=== PATIENT | male | born 1975 | race Caucasian/White ===

== ENCOUNTER 2019-08-01 16:05 | Inpatient (IN) ==
--- NOTE | 2019-08-01 18:23 | Emergency Department Note ---
General Adult HPI - General Chief complaint: Extremity Injury, Upper Stated complaint: hands and feet are swollen Time Seen by Provider: 08/01/19 17:47 Source: patient Mode of arrival: ambulatory Limitations: no limitations - History of Present Illness HPI Narrative: 44-year-old male patient presents to the emergency Department chief complaint of bilateral hand swelling and pain 1 day. Patient tells swelling started abruptly yesterday his progress or worsen. He is no longer able to make a full fist and is not able to grasp things secondary to worsening pain. He's never had this in the past. He has had edema in the past in his lower extremities. He was evaluated in our local emergency department on 06/14 for an episode of shortness of breath and chest pain. During that time he had swelling in his feet. During his workup he had blood work done and didn't show any elevated WBC. His CK total was 1777. CK-MB was 17.4. Myoglobin 269. A troponin was negative at 0.01. BNP was less than 50. He was diagnosed with rhabdomyolysis and discharged with instructions for compression hose, elevation of his legs, and discontinuing his diuretic therapy. He denies ongoing excessive activity (is no longer walking 3 miles as he was). He denies illicit substances. He continues to take his medications as previous directed. He does mention he was evaluated recent chest clinic with repeat laboratory studies but I do not have most review. He denies systemic fevers or sweats. He does mention being chilled yesterday. He denies sinus congestion, runny nose, or cough. He denies acute shortness of breath. He denies retrosternal chest pain or palpitations. He denies abdominal pain, nausea, vomiting, or diarrhea. He admits to a mild bilateral foot pain. He denies focal weakness. He denies dysuria. He admits to polyuria. A review of his active problems with the following: Acute renal failure, rhabdomyolysis, dependent edema, hypertension, history of Hodgkin's lymphoma, history of DVT, schizophrenia, obesity, hypothyroidism. - Related Data Home Medications Medication Instructions Recorded Confirmed Carvedilol [Coreg] 3.125 mg PO BID 06/14/19 06/14/19 DULoxetine [Cymbalta] 60 mg PO DAILY 06/14/19 06/14/19 Furosemide [Lasix] 25 mg PO DAILY 06/14/19 06/14/19 Levothyroxine [Synthroid] 25 mg PO DAILY 06/14/19 06/14/19 OLANZapine [Zyprexa] 15 mg PO DAILY 06/14/19 06/14/19 Omeprazole [Prilosec] 20 mg PO DAILY 06/14/19 06/14/19 Proair Hfa 90 mg PO DAILY 06/14/19 06/14/19 Allergies Allergy/AdvReac Type Severity Reaction Status Date / Time bee venom protein (honey bee) Allergy Verified 06/14/19 00:08 ibuprofen Allergy Verified 06/14/19 00:08 paliperidone [From Invega] Allergy Verified 06/14/19 00:08 Review of Systems All systems ED: reviewed and negative except as stated. Past Medical History - Past Medical History Psychiatric history: Reports: anxiety, depression, schizophrenia - Social History smoking status: Current every day smoker Alcohol use: Reports: None Drug use: Reports: none, marijuana (Daily smokes it) Physical Exam Limitations: no limitations General appearance: alert, anxious, grimacing, in distress Head: atraumatic, normocephalic Eye: Present: normal appearance, PERRL, EOMI. Absent: scleral icterus, conjunctival injection ENT: Present: normal oropharynx, mucous membranes dry Neck: Present: trachea midline. Absent: lymphadenopathy, thyromegaly Chest: Present: symmetric chest wall rise Respiratory: Present: normal lung sounds bilaterally. Absent: respiratory distress, wheezes, stridor, accessory muscle use, prolonged expiratory phase Cardiovascular: Present: regular rate, normal rhythm. Absent: systolic murmur, diastolic murmur Abdominal: Present: soft. Absent: distention, tenderness, guarding, rebound, rigidity, organomegaly, mass Extremities: Present: tenderness (exquisite tenderness to palpation throughout both hands.), normal capillary refill, other (considerable edema throughout both hands.). Absent: full ROM (decreased range of motion throughout all digits of both hands.) Neurological: Present: alert, oriented X3 Psychiatric: Present: agitated, anxious Skin: Present: warm, dry Course Course Narrative: Patient is brought into the emergency department and a history of physical exam is performed. Saline lock was established and laboratory studies were drawn. Ice packs were attempted to both hands with patient did not tolerate this. He was given Dilaudid as 0.5 mg IVP. Patient is suffer considerable pain to his hands was given a second Dilaudid 0.5 mg IVP. X-rays of both hands were ordered and reviewed. A review of his laboratory studies show the following: CBC el evated WBC 12.5, all others are normal limits. CMP chloride 95, anion gap 18, creatinine 1.4, total bilirubin 1.1, AST 186, total protein 8.6, albumin 5.8, all as normal limits. Total CK 15,824. CK-MB 92.8. Urinalysis showing clear yellow urine with specific gravity 1.023 and pH 6.0. Proteinuria and positive blood. Few mucus. Bilateral hand x-ray showing ununited left clavicular fracture probably avascular necrosis. Radiologist mentioned that she had some healed right first metacarpal and fifth metacarpal fractures. No other abnormalities. After reviewing all the data I discussed these findings with the patient. At this time he is suffer from rhabdomyolysis and is needing hospital ization for ongoing management. However this in mind, I contacted the hospitalist (Dr. Jensen) and discussed the case with him. At this time the hospitalist is going to admit the patient for ongoing evaluation and and watching his CK level over time. He'll need aggressive IV hydration and monitor ing of his kidney functions. Patient remained stable throughout his entire time in the emergency department and is being admitted under the care of Dr. Jensen. All further treatment decisions and modalities be carried out by Dr. Jensen at this time. Vital Signs Temperature 98.1 F 08/01/19 16:07 Pulse Rate 108 H 08/01/19 16:07 Respiratory Rate 18 08/01/19 16:07 Blood Pressure 144/96 08/01/19 16:07 Temperature 98.1 F 08/01/19 16:07 Pulse Rate 91 H 08/01/19 19:31 Respiratory Rate 18 08/01/19 16:07 Blood Pressure 140/105 08/01/19 19:31 Pulse Oximetry (%) 96 08/01/19 19:31 Medical Decision Making - Lab Data Lab results reviewed: Yes I reviewed the patient's lab results. Result diagrams: 08/01/19 17:35 08/01/19 17:35 Lab Results 08/01/19 08/01/19 08/01/19 Range/Units 17:35 17:35 17:35 WBC 12.5 H (4.5-11.0) K/mcL RBC 4.94 (4.50-5.90) M/mcL Hgb 14.7 (13.5-16.5) g/dL Hct 44.3 (41.0-55.0) % MCV 89.6 (80.0-100.0) fL MCH 29.8 (26.0-34.0) pg MCHC 33.3 (31.0-36.0) g/dL RDW 16.1 H (11.5-14.5) % Plt Count 283 (140-440) K/mcL MPV 7.2 L (7.4-10.4) fL Gran % 74.0 (38.0-78.0) % Lymph % (Auto) 20.8 (15.5-49.0) % [place] % (Auto) 4.3 (1.0-12.0) % Eos % (Auto) 0.6 (0.0-7.0) % Baso % (Auto) 0.3 (0.0-2.0) % Gran # 9.2 H (1.8-8.0) K/mcL Lymph # (Auto) 2.6 (1.5-4.8) K/mcL [place] # (Auto) 0.5 (0.1-0.9) K/mcL Eos # (Auto) 0.1 (0.0-0.7) K/mcL Baso # (Auto) 0 (0.0-0.3) K/mcL Sodium 135 (133-145) mmol/L Potassium 3.8 (3.3-5.1) mmol/L Chloride 95 L (96-108) mmol/L Carbon Dioxide 22 (22-30) mmol/L Anion Gap 18.0 H (8-16) BUN 13 (6-20) mg/dl Creatinine 1.4 H (0.7-1.2) mg/dl GFR Calculation 62 Glucose 99 (70-105) mg/dL Uric Acid (2.5-8.0) mg/dL Calcium 10.0 (8.6-10.4) mg/dl Total Bilirubin 1.1 H (0.0-1.0) mg/dL AST 186 H (0-37) U/l ALT 38 (0-40) U/l Alkaline Phosphatase 70 (39-117) U/L Total Creatine Kinase 34738 H (24-195) IU/L CK-MB (CK-2) 93.8 H (0-4.9) ng/ml Total Protein 8.6 H (5.9-8.4) gm/dL Albumin 5.8 H (3.2-5.2) gm/dL Globulin 2.8 (2.2-3.7) gm/dL Albumin/Globulin Ratio 2.1 (1.0-2.3) Urine Color Urine Appearance Urine pH (5.0-9.0) Ur Specific [place] (1.000-1.035) Urine Protein (NEG) mg/dL Urine Glucose (UA) (NEG) mg/dL Urine Ketones (NEG) mg/dL Urine Occult Blood (<0.03) mg/dL Urine Nitrate (NEG) Urine Bilirubin (NEG) mg/dL Urine Urobilinogen (NEG) mg/dL Ur Leukocyte Esterase (NEG) /uL Urine RBC (0-1) /hpf Urine WBC (0-4) /hpf Ur Squamous Epith Cells (0-4) /hpf Urine Bacteria (0) /hpf Urine Mucus (0) /hpf 08/01/19 08/01/19 Range/Units 17:35 18:27 WBC (4.5-11.0) K/mcL RBC (4.50-5.90) M/mcL Hgb (13.5-16.5) g/dL Hct (41.0-55.0) % MCV (80.0-100.0) fL MCH (26.0-34.0) pg MCHC (31.0-36.0) g/dL RDW (11.5-14.5) % Plt Count (140-440) K/mcL MPV (7.4-10.4) fL Gran % (38.0-78.0) % Lymph % (Auto) (15.5-49.0) % [place] % (Auto) (1.0-12.0) % Eos % (Auto) (0.0-7.0) % Baso % (Auto) (0.0-2.0) % Gran # (1.8-8.0) K/mcL Lymph # (Auto) (1.5-4.8) K/mcL [place] # (Auto) (0.1-0.9) K/mcL Eos # (Auto) (0.0-0.7) K/mcL Baso # (Auto) (0.0-0.3) K/mcL Sodium (133-145) mmol/L Potassium (3.3-5.1) mmol/L Chloride (96-108) mmol/L Carbon Dioxide (22-30) mmol/L Anion Gap (8-16) BUN (6-20) mg/dl Creatinine (0.7-1.2) mg/dl GFR Calculation Glucose (70-105) mg/dL Uric Acid 7.6 (2.5-8.0) mg/dL Calcium (8.6-10.4) mg/dl Total Bilirubin (0.0-1.0) mg/dL AST (0-37) U/l ALT (0-40) U/l Alkaline Phosphatase (39-117) U/L Total Creatine Kinase (24-195) IU/L CK-MB (CK-2) (0-4.9) ng/ml Total Protein (5.9-8.4) gm/dL Albumin (3.2-5.2) gm/dL Globulin (2.2-3.7) gm/dL Albumin/Globulin Ratio (1.0-2.3) Urine Color Yellow Urine Appearance Clear Urine pH 6.0 (5.0-9.0) Ur Specific [place] 1.023 (1.000-1.035) Urine Protein 100 A (NEG) mg/dL Urine Glucose (UA) Negative (NEG) mg/dL Urine Ketones Neg (NEG) mg/dL Urine Occult Blood 0.2 A (<0.03) mg/dL Urine Nitrate Neg (NEG) Urine Bilirubin Neg (NEG) mg/dL Urine Urobilinogen Neg (NEG) mg/dL Ur Leukocyte Esterase Neg (NEG) /uL Urine RBC 1 (0-1) /hpf Urine WBC 1 (0-4) /hpf Ur Squamous Epith Cells < 1 (0-4) /hpf Urine Bacteria 0 (0) /hpf Urine Mucus Few (0) /hpf - Radiology Data Radiology results reviewed: Yes I reviewed the patient's radiology results. Ordering Physician: Mani Landeros PA-C Date of Service: 08/01/19 Procedure(s): XR hand comp BI 3V Accession Number(s): [id number] CLINICAL INFORMATION: Bilateral joint pain TECHNIQUE: PA, oblique, lateral bilateral hands COMPARISON: None. FINDINGS: Right hand: Previous open reduction and internal fixation of right first metacarpal fracture. There is a plate and multiple screws. Alignment is anatomic Probable old healed fracture of the right fifth metacarpal Normal joint spaces. Metacarpal phalangeal joints are normal. Interphalangeal joints are negative. Radiocarpal joints are normal. Intercarpal joints are negative. Mild negative ulnar variance No bone destruction. Left hand: Ununited left navicular fracture. There is sclerosis and cystic change consistent with avascular necrosis. Mild degenerative joint disease in the left radiocarpal joint. Mild negative ulnar variance. Metacarpophalangeal joints and interphalangeal joints are normal. No acute fracture IMPRESSION: 1. 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 Healed right first metacarpal and fifth metacarpal fractures 3. No other abnormality Interpreted and Authenticated by: Brandt Valentin 08/01/19 Disposition Pt seen by DATA MANAGER/PA only: Yes Clinical Impression: Rhabdomyolysis Qualifiers: Rhabdomyolysis type: non-traumatic Qualified Code(s): M62.82 - Rhabdomyolysis Disposition: Xfer As Inpt ([facility]) Condition: Good Instructions: Rhabdomyolysis (ED) Additional Instructions: Patient is being admitted to the hospital under the care of Dr. Jensen presents hospitalist) sees. All further treatment decisions to be carried out by the hospitalist service at this time. Time of Disposition: 20:33
[2019-08-01] MEDS: HYDROmorphone 2 MG/ML VIAL IV PRN ×3 (18:35→21:00)
[2019-08-01] MEDS: 0.9 % SODIUM CHLORIDE 1,000 ML IV ONE ×2 (18:36→19:50)
[2019-08-01 18:57] LABS: Basophils # (Auto) 0 K/mcL (0.0-0.3); Basophils % (Auto) 0.3 % (0.0-2.0); Eosinophils # (Auto) 0.1 K/mcL (0.0-0.7); Eosinophils % (Auto) 0.6 % (0.0-7.0); Hematocrit 44.3 % (41.0-55.0); Hemoglobin 14.7 g/dL (13.5-16.5); Lymphocytes # (Auto) 2.6 K/mcL (1.5-4.8); Lymphocytes % (Auto) 20.8 % (15.5-49.0); Mean Cell Volume 89.6 fL (80.0-100.0); Mean Corpuscular HGB Conc 33.3 g/dL (31.0-36.0); Mean Platelet Volume 7.2 fL (7.4-10.4); Monocytes # (Auto) 0.5 K/mcL (0.1-0.9); Monocytes % (Auto) 4.3 % (1.0-12.0); Platelet Count 283 K/mcL (140-440); RBC 4.94 M/mcL (4.50-5.90); Red Cell Distribution Width 16.1 % (11.5-14.5); WBC 12.5 K/mcL (4.5-11.0)
--- NOTE | 2019-08-01 19:05 | XRay Report ---
CLINICAL INFORMATION: Bilateral joint pain TECHNIQUE: PA, oblique, lateral bilateral hands COMPARISON: None. FINDINGS: Right hand: Previous open reduction and internal fixation of right first metacarpal fracture. There is a plate and multiple screws. Alignment is anatomic Probable old healed fracture of the right fifth metacarpal Normal joint spaces. Metacarpal phalangeal joints are normal. Interphalangeal joints are negative. Radiocarpal joints are normal. Intercarpal joints are negative. Mild negative ulnar variance No bone destruction. Left hand: Ununited left navicular fracture. There is sclerosis and cystic change consistent with avascular necrosis. Mild degenerative joint disease in the left radiocarpal joint. Mild negative ulnar variance. Metacarpophalangeal joints and interphalangeal joints are normal. No acute fracture IMPRESSION: 1. 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 Healed right first metacarpal and fifth metacarpal fractures 3. No other abnormality Interpreted and Authenticated by: Brandt Valentin 08/01/19
[2019-08-01 19:24] LABS: ALT/SGPT 38 U/l (0-40); AST/SGOT 186 U/l (0-37); Albumin 5.8 gm/dL (3.2-5.2); Albumin/Globulin Ratio 2.1 (1.0-2.3); Alkaline Phosphatase 70 U/L (39-117); Bilirubin,Total 1.1 mg/dL (0.0-1.0); Blood Urea Nitrogen 13 mg/dl (6-20); Carbon Dioxide 22 mmol/L (22-30); Chloride 95 mmol/L (96-108); Globulin 2.8 gm/dL (2.2-3.7); Glomerular Filtration Rate 62; Glucose 99 mg/dL (70-105)
[2019-08-01 19:32] LABS: Appearance,Urine CLEAR; Bacteria,Urine 0 /hpf (0); Bilirubin,Urine NEG (NEG); Color,Urine YELLOW; Glucose,Urine (UA) NEGATIVE (NEG); Ketones,Urine NEG (NEG); Leukocyte Esterase,Urine NEG /uL (NEG); Mucus,Urine FEW /hpf (0); Nitrate,Urine NEG (NEG); Protein,Urine 100 mg/dL (NEG); Specific Gravity,Urine 1.023 (1.000-1.035); Urine Blood 0.2 mg/dL (<0.03); Urine RBC 1 /hpf (0-1); Urine Squamous Epithelial Cell < 1 /hpf (0-4); Urine WBC 1 /hpf (0-4); Urobilinogen,Urine NEG (NEG)
[2019-08-01 19:37] LABS: Creatine Kinase MB 93.8 ng/ml (0-4.9)
[2019-08-01] MEDS ORDERED: 0.9 % SODIUM CHLORIDE 1,000 ML IV SCH (20:45)
--- NOTE | 2019-08-01 21:57 | Internal Med History&Physical ---
Medical - H&P: HPI Patient information: Note initiated : 08/01/19 at 9:57 pm Service Date, if different from initiated Date: [] Patient: Delfin Millard a 44 y/o M admitted on for Hands And Feet Are Swollen. Chief Complaint: hand pain and swelling; found to have rhabdomyolysis History of present illness: Mr. Millard is a 44 year old M with a history of schizophrenia, depression, hypertension, asthma/emphysema who presented to the emergency department with swelling of his hands arms and shoulders. History is obtained speaking with the patient, though that is a bit convoluted, as well as reviewing old records. Patient was seen back here on 06/14 and diagnosed with mild rhabdomyolysis. At that time it was thought it was because he was walking extensively between [place] and [place] to visit family. He presents again today with bilateral hands being swollen and tender and complaints of retaining fluid and being painful. Yesterday he was feeling well. He spent the day playing with his grandchildren. He was using video games. He was not using his hands for labor, catching objects, or any repetitive movements or striking motions. He states he cannot use his hands because they are too painful. He awoke last night with the onset of pain and swelling. He has had multiple fractures of his hands in the past, states the pain currently is worse than fractures. He does not think his hands are swollen up like this before. He also complains of retaining fluid in his arms and shoulders. The patient's history is vague, and sometimes circuitous. He denies any stimulant use, though he was incarcerated up until 05/12/2019 for methamphetamine possession. he is on olanzapine, but has no stigmata of a neuroleptic malignant syndrome. He did not sleep on his hands, had not been unconscious for prolonged period of time. He denies any prior episodes. Denies any similar type of episodes in the family . Is a history of schizophrenia and coronary disease in the family, no history of autoimmune disease. Upon laboratory evaluation his total CPK was found to be greater than 15,000. Renal function is stable. He is being admitted for treatment of rhabdomyolysis. Patient denies fevers or chills. He gets some stable dyspnea secondary to COPD. Is recently had a head cold which is improving. He denies any abdominal pain, no nausea, vomiting, diarrhea. No dysuria. His chronic low back pain which is unchanged. He has to stop when he is walking secondary to back pain in order to recover. Denies any easy bruising, no history of mucous membrane swelling. He has callused areas on the hands and knees, he states that was because he was sleeping on the floor and crawling in the recent past. He was incarcerated up until 05/12/2019 for methamphetamine possession. No focal neurologic symptoms. Denies any hallucinations. No vision changes, no headache. Review of systems: Except as noted in the history of present illness, the remainder of a 10 point review of systems is negative. Medical - H&P: [facility] Medical history: Hypertension, essential (Chronic) History of Hodgkin's lymphoma (Chronic) History of DVT (deep vein thrombosis) (Resolved) Schizophrenia (Chronic) Obesity (BMI 30-39.9) (Chronic) Hypothyroidism, acquired (Chronic) Asthma/emphysema Chronic low back pain with L5 rupture Surgical history: History of lymph node biopsy (Acute) History of major abdominal surgery (Acute) History of removal of Port-a-Cath (Acute) History of tonsillectomy (Acute) Pertinent family history: Father: Coronary artery disease, Schizophrenia Mother: COPD Brother: Schizophrenia Social history: Denies current illicit drug use. Smokes half pack per day. Does not drink alcohol. Medical - H&P: Meds Home Medications Medication Instructions Recorded Confirmed Type Carvedilol [Coreg] 3.125 mg PO BID 06/14/19 08/02/19 History DULoxetine [Cymbalta] 60 mg PO QHS 06/14/19 08/02/19 History OLANZapine [Zyprexa] 15 mg PO QHS 06/14/19 08/02/19 History Omeprazole [Prilosec] 20 mg PO DAILY 06/14/19 08/02/19 History Proair Hfa 90 mg PO DAILY 06/14/19 08/02/19 History Hydrochlorothiazide [Oretic] 25 mg PO QDAY 08/01/19 08/02/19 History Levothyroxine Sodium 200 mcg PO QDAY 08/01/19 08/02/19 History Levothyroxine [Synthroid] 50 mcg PO DAILY 08/02/19 08/02/19 History Allergies Allergy/AdvReac Type Severity Reaction Status Date / Time bee venom protein (honey bee) Allergy Anaphylaxis Verified 08/02/19 00:25 ibuprofen Allergy Hives Verified 08/02/19 00:25 paliperidone [From Invega] Allergy Hives Verified 08/02/19 00:25 Medical - H&P: Exam - Constitutional Vitals: Temp Pulse Resp BP Pulse Ox 98.1 F 108 H 18 161/85 96 08/01/19 16:07 08/01/19 21:32 08/01/19 16:07 08/01/19 21:32 08/01/19 21:32 Exam: GENERAL: Alert, oriented, mildly uncomfortable. Cooperative. HEENT: Atraumatic. PERRL at 2 mm, conjunctiva clear, no scleral icterus. Hearing grossly intact. Oropharynx with moist mucous membranes, poor dentition, no lip or gum lesions. NECK: Supple without meningismus, no thyromegaly RESPIRATORY: Breath sounds clear bilaterally without wheezes or rhonchi. Respiratory effort is unlabored. CARDIOVASCULAR: Regular rate and rhythm, no murmur gallop or rub. Trace peripheral edema. Carotid pulses 2+. GI: Abdomen obese soft, nontender, no guarding or rebound. Bowel sounds are present. No hepatosplenomegaly. MUSCULOSKELETAL: Nonpitting edema across the dorsum of both hands from the wrist to the phalange ease. There is mild to moderate tenderness to palpation, no fluctuance. SKIN: Rough, mildly raised dry patches across the knuckles of the hands, at the elbows and knees. These are not violaceous or erythematous. NEUROLOGIC: Cranial nerves II through XII grossly intact. Muscle mass normal. Strength 5/5 in the upper and lower extremities, no apparent proximal weakness. Sensation intact to light touch bilaterally. PSYCHIATRIC: Alert, oriented x3, mood is anxious, mild psychomotor agitation. Thought processes are convoluted at times. Medical - H&P: Reslt - Labs CBC & Chem 7: 08/01/19 17:35 08/01/19 17:35 Labs: Short CBC 08/01/19 Range/Units 17:35 WBC 12.5 H (4.5-11.0) K/mcL Hgb 14.7 (13.5-16.5) g/dL Hct 44.3 (41.0-55.0) % Plt Count 283 (140-440) K/mcL BMP 08/01/19 17:35 Sodium 135 Potassium 3.8 Chloride 95 L Carbon Dioxide 22 BUN 13 Creatinine 1.4 H Glucose 99 Calcium 10.0 Cardiac Enzymes 08/01/19 Range/Units 17:35 Total Creatine Kinase 97361 H (24-195) IU/L CK-MB (CK-2) 93.8 H (0-4.9) ng/ml Liver Function 08/01/19 Range/Units 17:35 Total Bilirubin 1.1 H (0.0-1.0) mg/dL AST 186 H (0-37) U/l ALT 38 (0-40) U/l Alkaline Phosphatase 70 (39-117) U/L Albumin 5.8 H (3.2-5.2) gm/dL Urine 08/01/19 Range/Units 18:27 Urine Color Yellow Urine Appearance Clear Urine pH 6.0 (5.0-9.0) Ur Specific [place] 1.023 (1.000-1.035) Urine Protein 100 A (NEG) mg/dL Urine Glucose (UA) Negative (NEG) mg/dL - Impressions Images are personally reviewed Date of Service: 08/01/19 Procedure(s): XR hand comp BI 3V IMPRESSION: 1. 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 Healed right first metacarpal and fifth metacarpal fractures 3. No other abnormality Medical - H&P: A/P - Narrative A/P Narrative: 44-year-old male presenting with swelling to the bilateral hands, found to have rhabdomyolysis. Rhabdomyolysis. CPK is elevated to greater than 15,000. Unclear what the etiology is. Suspect rhabdomyolysis. Illicit stimulant use could be a possibility. Less likely something more esoteric such as a capillary leak causing swelling and rhabdo. Wonder if the patient did undergo repetitive striking motions with his hands for some reason yesterday leading to the current findings. He does have some scaling and thickening across the PIP joints as well as the knees and elbows, this is not a classic violaceous or erythematous finding like [place]'s papules. Need to consider a inflammatory myopathy if CK is not improving with hydration as is expected with rhabdo. Plan: Inpatient admission Aggressive fluid resuscitation Monitor urine output and renal function Follow CPK Had drug screen the urine sample Consider sending CHRISTIN and other autoimmune work-up if not improving Schizophrenia. Apparently the patient has been on and off his medications according to history he gave his nurse after admission. Plan: Continue home olanzapine. Hypertension. On carvedilol. Plan: Continue. Prophylaxis: Lovenox CODE STATUS: Full code
[2019-08-01] MEDS ORDERED: diphenhydrAMINE 50 MG/ML VIAL IV ONE (22:01)
[2019-08-01] MEDS ORDERED: ONDANSETRON 4 MG/2 ML VIAL IV PRN (23:50)
[2019-08-01] MEDS ORDERED: ACETAMINOPHEN 325 MG TABLET PO PRN (23:50)
[2019-08-01] MEDS ORDERED: ONDANSETRON 4 MG ODT TABLET SL PRN (23:50)
[2019-08-02] MEDS: 0.9 % SODIUM CHLORIDE 1,000 ML IV SCH ×4 (00:29→19:30)
[2019-08-02] MEDS: 0.9 % SODIUM CHLORIDE 10 ML SYRINGE IV SCH ×4 (00:29→20:21)
[2019-08-02] MEDS ORDERED: traMADol 50 MG TABLET PO ONE (01:21)
[2019-08-02] MEDS ORDERED: OLANZapine 2.5 MG TABLET PO ONE (02:45)
[2019-08-02] MEDS ORDERED: ACETAMINOPHEN 325 MG TABLET PO ONE (03:57)
[2019-08-02 04:14] LABS: Amphetamine Screen,Urine SUSPECT POSITIVE (NONDETECTED); Barbiturate Screen,Urine NONE DETECTED (NONDETECTED); Benzodiazepines Screen,Urine NONE DETECTED (NONDETECTED); Cannabinoid Screen,Urine SUSPECT POSITIVE (NONDETECTED); Cocaine Screen,Urine NONE DETECTED (NONDETECTED); Opiate Screen,Urine NONE DETECTED (NONDETECTED); Oxycodone, Urine Screen NONE DETECTED (NONDETECTED); Phencyclidine Screen,Urine NONE DETECTED (NONDETECTED)
[2019-08-02 07:24] LABS: Blood Urea Nitrogen 13 mg/dl (6-20); CRP,High Sensitivity 19.2 mg/L (1.0-3.0); Calcium 9.3 mg/dl (8.6-10.4); Carbon Dioxide 24 mmol/L (22-30); Chloride 99 mmol/L (96-108); Glomerular Filtration Rate 62; Glucose 121 mg/dL (70-105)
[2019-08-02] MEDS ORDERED: LEVOTHYROXINE 50 MCG TABLET PO SCH (09:00)
[2019-08-02] MEDS: OMEPRAZOLE 20 MG CAPSULE PO SCH (09:07)
[2019-08-02] MEDS: LEVOTHYROXINE 100 MCG TABLET PO SCH (09:07)
[2019-08-02] MEDS: traMADol 50 MG TABLET PO PRN ×2 (09:07→20:29)
[2019-08-02] MEDS: CARVEDILOL 3.125 MG TABLET PO SCH ×2 (09:08→18:41)
[2019-08-02] MEDS: ENOXAPARIN 40 MG/0.4 ML SYRINGE SQ SCH (09:08)
--- NOTE | 2019-08-02 15:01 | Ultrasound Report ---
CLINICAL INFORMATION: Bilateral leg pain and edema TECHNIQUE: Grayscale and color flow Doppler spectral imaging COMPARISON: None. FINDINGS: Negative examination for deep venous thrombosis. Common femoral veins, femoral veins, popliteal veins, calf veins are negative bilaterally. Greater saphenous veins are negative. No deep venous thrombosis. No focal abnormality. IMPRESSION: 1. Negative bilateral lower extremity deep venous ultrasound 2. Negative examination for deep venous thrombosis Interpreted and Authenticated by: Brandt Valentin 08/02/19
--- NOTE | 2019-08-02 15:45 | Internal Med Progress Note ---
Medical - PN: Subj Patient information: Note initiated : 08/02/19 at 3:43 pm Service Date, if different from initiated Date: [] Patient: Delfin Millard a 44 y/o M admitted on 08/01/19 for Hands And Feet Are Swollen. Chief Complaint: Follow up rhabdo Interval history: 08/01 Mr. Millard is a 44 year old M with a history of schizophrenia, depression, hypertension, asthma/emphysema who presented to the emergency department with swelling of his hands arms and shoulders. History is obtained speaking with the patient, though that is a bit convoluted, as well as reviewing old records. Patient was seen back here on 06/14 and diagnosed with mild rhabdomyolysis. At that time it was thought it was because he was walking extensively between [place] and [place] to visit family. He presents again today with bilateral hands being swollen and tender and complaints of retaining fluid and being painful. Yesterday he was feeling well. He spent the day playing with his grandchildren. He was using video games. He was not using his hands for labor, catching objects, or any repetitive movements or striking motions. He states he cannot use his hands because they are too painful. He awoke last night with the onset of pain and swelling. He has had multiple fractures of his hands in the past, states the pain currently is worse than fractures. He does not think his hands are swollen up like this before. He also complains of retaining fluid in his arms and shoulders. The patient's history is vague, and sometimes circuitous. He denies any stimulant use, though he was incarcerated up until 05/12/2019 for methamphetamine possession. he is on olanzapine, but has no stigmata of a neuroleptic malignant syndrome. He did not sleep on his hands, had not been unconscious for prolonged period of time. He denies any prior episodes. Denies any similar type of episodes in the family. Is a history of schizophrenia and coronary disease in the family, no history of autoimmune disease. Upon laboratory evaluation his total CPK was found to be greater than 15,000. Renal function is stable. He is being admitted for treatment of rhabdomyolysis. 08/02 Continues to have worsening edema in the right hand and wrist (peripheral IV in the right antecubital, also pain persist with edema in the left hand. Denies any weaknesses. Has dry patches on his knees and elbows and faintly over the first knuckles of the hands. No woody findings consistent with Rotton's nodules. No rash across the upper back or chest. Some mild periorbital erythema. No fever or chills. Appetite is good. No dyspnea, no chest pain. Wants to go out and smoke. - Constitutional Vitals: Vital Signs Temp Pulse Resp BP Pulse Ox 98.0 F 61 18 143/91 93 08/02/19 11:52 08/02/19 11:52 08/02/19 11:52 08/02/19 11:52 08/02/19 11:52 Period Temp Pulse Resp BP Sys/Choe Pulse Ox Last 24 Hr 97.5 F-98.1 F 61-108 18-18 134-178/57-142 93-97 Intake and Output 08/02/19 08/02/19 08/02/19 05:59 13:59 21:59 Intake Total 1240 1323 Output Total 425 1750 Balance 815 -427 Weight 274 lb 8 oz 274 lb 8 oz Patient Weight 08/03/19 04:59 Weight 274 lb 8 oz Intake & Output: Intake & Output 08/02/19 08/02/19 08/02/19 05:59 13:59 21:59 Intake Total 1240 1323 Output Total 425 1750 Balance 815 -427 Weight 274 lb 8 oz 274 lb 8 oz Intake: IV 1000 923 Sodium Chloride 0.9% 1,000 ml @ 1000 923 150 mls/hr IV .Q6H40M [facility] Rx#: [id number] Oral 240 400 Output: Void Amount 425 1750 Other: Meal Breakfast Percent of Meal Consumed 100% Feeding Ability Independent Urine Appearance Clear Clear Urine Color Dark Yellow Bright Yellow Exam: General: Mildly uncomfortable appearing Chest: Clear with good respiratory effort Cardiovascular: Regular Abdomen: Obese, soft Skin: Dry patches on elbows and knees, not violaceous or erythematous. Very mild dry scale over MCP knuckles, again not violaceous. Mild eyelid and periorbital erythema with few telangiectasia. Extremities: Significant edema of the right dorsum of the hand, identification badge is becoming tight at the right wrist. There is tenderness to palpation. Range of motion at the wrist and digits are limited due to edema. Musculoskeletal: No muscle tenderness to palpation. Strength is 5/5 at the biceps and triceps as well as the hip flexors and extensors bilaterally. Medical - PN: Obj Da - Labs CBC & Chem 7: 08/01/19 17:35 08/02/19 05:08 Labs: Abnormal Lab Results 08/02/19 08/01/19 08/01/19 05:08 18:27 18:27 WBC RDW MPV Gran # Chloride Anion Gap Creatinine 1.4 H Glucose 121 H Total Bilirubin AST Total Creatine Kinase 71465 H CK-MB (CK-2) C-React Prot High Sens 19.2 H Total Protein Albumin Urine Protein 100 A Urine Occult Blood 0.2 A Ur Amphetamines Screen Suspect positive A U Marijuana (THC) Screen Suspect positive A 08/01/19 08/01/19 08/01/19 17:35 17:35 17:35 WBC 12.5 H RDW 16.1 H MPV 7.2 L Gran # 9.2 H Chloride 95 L Anion Gap 18.0 H Creatinine 1.4 H Glucose Total Bilirubin 1.1 H AST 186 H Total Creatine Kinase 29677 H CK-MB (CK-2) 93.8 H C-React Prot High Sens Total Protein 8.6 H Albumin 5.8 H Urine Protein Urine Occult Blood Ur Amphetamines Screen U Marijuana (THC) Screen Meds: Medications Acetaminophen (Tylenol) 650 mg PO Q6HP PRN; Protocol PRN Reason: Per Pain Protocol/Fever > 101 [facility] Last Admin: 08/02/19 09:08 Dose: 3.125 mg Documented by: Duloxetine HCl (Cymbalta) 60 mg PO HS [facility] Enoxaparin Sodium (Lovenox) 40 mg SQ DAILY [facility] Last Admin: 08/02/19 09:08 Dose: 40 mg Documented by: Sodium Chloride (Sodium Chloride 0.9%) 1,000 mls @ 150 mls/hr IV .Q6H40M [facility] Last Admin: 08/02/19 11:09 Dose: 150 mls/hr Documented by: Levothyroxine Sodium (Synthroid) 200 mcg PO ACB [facility] Last Admin: 08/02/19 09:07 Dose: 200 mcg Documented by: Olanzapine (Zyprexa) 15 mg PO HS [facility] Omeprazole (Prilosec) 20 mg PO ACB [facility] Last Admin: 08/02/19 09:07 Dose: 20 mg Documented by: Ondansetron HCl (Zofran) 4 mg IV Q6HP PRN PRN Reason: Nausea And Vomiting Ondansetron HCl (Zofran Odt) 4 mg SL Q6HP PRN PRN Reason: Nausea And Vomiting Sodium Chloride (Saline Flush) 10 ml IV Q8 [facility] Last Admin: 08/02/19 05:02 Dose: Not Given Documented by: Tramadol HCl (Ultram) 100 mg PO Q6HP PRN PRN Reason: Pain Last Admin: 08/02/19 09:07 Dose: 100 mg Documented by: Medical - PN: A/P - Time Spent With Patient Total time spent is greater than 50% in coordination of care (as documented) at patient's floor/unit and/or counseling patient: Greater than 35 minutes - Narrative A/P Narrative: 44-year-old male presenting with swelling to the bilateral hands, found to have rhabdomyolysis. Rhabdomyolysis. CPK >15,000 at presentation, up over 20,000 today. Etiology remains unclear, rhabdomyolysis is suspected however. Urine drug screen was putatively positive for amphetamine, though he denies use. Denies any other new medications. Does not have classic dermatomyositis skin findings, though query if this could be an autoimmune process. Less likely something more esoteric such as a capillary leak causing swelling and rhabdo. Need to consider a inflammatory myopathy if CK continues to not improve with hydration as is expected with rhabdo. If this is a stimulant related, potentially could not have yet peaked. Plan: Continue fluid resuscitation Monitor urine output and renal function Follow CPK Rule out venous thrombosis as cause of edema with upper extremity duplex (ordered, however a lower extremity study was performed; upper study pending) Consider sending CHRISTIN and other autoimmune work-up if not improving Schizophrenia. Apparently the patient has been on and off his medications according to history he gave his nurse after admission. Plan: Continue home olanzapine. Hypertension. On carvedilol. Plan: Continue. Prophylaxis: Lovenox Medical - PN: Qual - VTE Deep Vein Thrombosis/Pulmonary Embolism Present on Admission: No
[2019-08-02] MEDS: DULoxetine 30 MG CAPSULE PO SCH (20:28)
[2019-08-02] MEDS: OLANZapine 5 MG TABLET PO SCH (20:28)
[2019-08-03] MEDS: 0.9 % SODIUM CHLORIDE 1,000 ML IV SCH ×5 (01:28→17:40)
[2019-08-03] MEDS: 0.9 % SODIUM CHLORIDE 10 ML SYRINGE IV SCH ×3 (05:23→23:00)
[2019-08-03 06:14] LABS: Basophils # (Auto) 0 K/mcL (0.0-0.3); Basophils % (Auto) 0.6 % (0.0-2.0); Eosinophils # (Auto) 0.1 K/mcL (0.0-0.7); Eosinophils % (Auto) 1.2 % (0.0-7.0); Hematocrit 38.8 % (41.0-55.0); Hemoglobin 12.9 g/dL (13.5-16.5); Lymphocytes # (Auto) 2.4 K/mcL (1.5-4.8); Mean Cell Volume 90.7 fL (80.0-100.0); Mean Corpuscular HGB Conc 33.2 g/dL (31.0-36.0); Mean Platelet Volume 7.3 fL (7.4-10.4); Monocytes # (Auto) 0.4 K/mcL (0.1-0.9); Monocytes % (Auto) 5.2 % (1.0-12.0); Platelet Count 201 K/mcL (140-440); RBC 4.28 M/mcL (4.50-5.90); Red Cell Distribution Width 15.7 % (11.5-14.5); WBC 7.8 K/mcL (4.5-11.0)
[2019-08-03 06:18] LABS: Blood Urea Nitrogen 9 mg/dl (6-20); Calcium 8.8 mg/dl (8.6-10.4); Carbon Dioxide 22 mmol/L (22-30); Chloride 103 mmol/L (96-108); Glomerular Filtration Rate 67; Glucose 113 mg/dL (70-105)
[2019-08-03] MEDS: CARVEDILOL 3.125 MG TABLET PO SCH ×2 (07:20→16:47)
[2019-08-03] MEDS: LEVOTHYROXINE 100 MCG TABLET PO SCH (07:20)
[2019-08-03] MEDS: ENOXAPARIN 40 MG/0.4 ML SYRINGE SQ SCH (07:20)
[2019-08-03] MEDS: OMEPRAZOLE 20 MG CAPSULE PO SCH (07:20)
--- NOTE | 2019-08-03 08:30 | Internal Med Progress Note ---
Medical - PN: Subj Patient information: Note initiated : 08/03/19 at 8:27 am Service Date, if different from initiated Date: [] Patient: Delfin Millard a 44 y/o M admitted on 08/01/19 for Hands And Feet Are Swollen. Chief Complaint: Follow-up rhabdomyolysis Interval history: 08/01 Mr. Millard is a 44 year old M with a history of schizophrenia, depression, hypertension, asthma/emphysema who presented to the emergency department with swelling of his hands arms and shoulders. History is obtained speaking with the patient, though that is a bit convoluted, as well as reviewing old records. Patient was seen back here on 06/14 and diagnosed with mild rhabdomyolysis. At that time it was thought it was because he was walking extensively between [place] and [place] to visit family. He presents again today with bilateral hands being swollen and tender and complaints of retaining fluid and being painful. Yesterday he was feeling well. He spent the day playing with his grandchildren. He was using video games. He was not using his hands for labor, catching objects, or any repetitive movements or striking motions. He states he cannot use his hands because they are too painful. He awoke last night with the onset of pain and swelling. He has had multiple fractures of his hands in the past, states the pain currently is worse than fractures. He does not think his hands are swollen up like this before. He also complains of retaining fluid in his arms and shoulders. The patient's history is vague, and sometimes circuitous. He denies any stimulant use, though he was incarcerated up until 05/12/2019 for methamphetamine possession. he is on olanzapine, but has no stigmata of a neuroleptic malignant syndrome. He did not sleep on his hands, had not been unconscious for prolonged period of time. He denies any prior episodes. Denies any similar type of episodes in the family. Is a history of schizophrenia and coronary disease in the family, no history of autoimmune disease. Upon laboratory evaluation his total CPK was found to be greater than 15,000. Renal function is stable. He is being admitted for treatment of rhabdomyolysis. 08/02 Continues to have worsening edema in the right hand and wrist (peripheral IV in the right antecubital, also pain persist with edema in the left hand. Denies any weaknesses. Has dry patches on his knees and elbows and faintly over the first knuckles of the hands. No woody findings consistent with Rotton's nodules. No rash across the upper back or chest. Some mild periorbital erythema. No fever or chills. Appetite is good. No dyspnea, no chest pain. Wants to go out and smoke. 08/03 Patient did have his upper extremity duplex repeated yesterday (ordered upper extremities, electronic calibration technician initially did lower extremities). Hands are not as painful. Still with edema, but improving. Does not recall any trauma to his hands or upper extremities prior to coming in. CPKs are dropping today. - Constitutional Vitals: Vital Signs Temp Pulse Resp BP Pulse Ox 98.4 F 60 20 121/60 97 08/03/19 07:47 08/03/19 04:00 08/03/19 07:47 08/03/19 07:47 08/03/19 07:47 Period Temp Pulse Resp BP Sys/Choe Pulse Ox Last 24 Hr 97.5 F-98.8 F 58-105 18-20 121-162/60-100 93-98 Intake and Output 08/02/19 08/03/19 08/03/19 22:59 05:59 13:59 Intake Total 1000 Output Total Balance 1000 Weight Intake & Output: Intake & Output 08/02/19 08/03/19 08/03/19 22:59 05:59 13:59 Intake Total 1000 Output Total Balance 1000 Weight Intake: IV 1000 Sodium Chloride 0.9% 1,000 ml @ 1000 150 mls/hr IV .Q6H40M [facility] Rx#: [id number] Oral Output: Void Amount Other: Urine Appearance Urine Color Exam: General: No acute distress, seated edge of bed Chest: Clear to auscultation bilaterally Cardiovascular: Regular rate and rhythm. Abdomen: Obese, soft, nontender Extremities: Puffiness and nonpitting edema on the right greater than left hands, particularly in the dorsum of the hands but also in digits. Minimal tenderness to palpation today. Range of motion improving. 2+ radial pulses. Good capillary refill. Neuro: Alert, oriented. No hallucinations. Medical - PN: Obj Da - Labs CBC & Chem 7: 08/03/19 04:53 08/03/19 04:53 Labs: Abnormal Lab Results 08/03/19 08/03/19 08/03/19 04:53 04:53 04:53 WBC RBC 4.28 L Hgb 12.9 L Hct 38.8 L RDW 15.7 H MPV 7.3 L Gran # Chloride Anion Gap Creatinine 1.3 H Glucose 113 H Total Bilirubin AST Total Creatine Kinase 48307 H CK-MB (CK-2) C-React Prot High Sens Total Protein Albumin Urine Protein Urine Occult Blood Ur Amphetamines Screen U Marijuana (THC) Screen 08/02/19 08/01/19 08/01/19 05:08 18:27 18:27 WBC RBC Hgb Hct RDW MPV Gran # Chloride Anion Gap Creatinine 1.4 H Glucose 121 H Total Bilirubin AST Total Creatine Kinase 28912 H CK-MB (CK-2) C-React Prot High Sens 19.2 H Total Protein Albumin Urine Protein 100 A Urine Occult Blood 0.2 A Ur Amphetamines Screen Suspect positive A U Marijuana (THC) Screen Suspect positive A 08/01/19 08/01/19 08/01/19 17:35 17:35 17:35 WBC 12.5 H RBC Hgb Hct RDW 16.1 H MPV 7.2 L Gran # 9.2 H Chloride 95 L Anion Gap 18.0 H Creatinine 1.4 H Glucose Total Bilirubin 1.1 H AST 186 H Total Creatine Kinase 20055 H CK-MB (CK-2) 93.8 H C-React Prot High Sens Total Protein 8.6 H Albumin 5.8 H Urine Protein Urine Occult Blood Ur Amphetamines Screen U Marijuana (THC) Screen Meds: Medications Acetaminophen (Tylenol) 650 mg PO Q6HP PRN; Protocol PRN Reason: Per Pain Protocol/Fever > 101 [facility] Last Admin: 08/03/19 07:20 Dose: 3.125 mg Documented by: Duloxetine HCl (Cymbalta) 60 mg PO [facility] Last Admin: 08/02/19 20:28 Dose: 60 mg Documented by: Enoxaparin Sodium (Lovenox) 40 mg SQ DAILY [facility] Last Admin: 08/03/19 07:20 Dose: 40 mg Documented by: Sodium Chloride (Sodium Chloride 0.9%) 1,000 mls @ 150 mls/hr IV .Q6H40M [facility] Last Admin: 08/03/19 08:12 Dose: 150 mls/hr Documented by: Levothyroxine Sodium (Synthroid) 200 mcg PO ACB [facility] Last Admin: 08/03/19 07:20 Dose: 200 mcg Documented by: Olanzapine (Zyprexa) 15 mg PO HS [facility] Last Admin: 08/02/19 20:28 Dose: 15 mg Documented by: Omeprazole (Prilosec) 20 mg PO ACB [facility] Last Admin: 08/03/19 07:20 Dose: 20 mg Documented by: Ondansetron HCl (Zofran) 4 mg IV Q6HP PRN PRN Reason: Nausea And Vomiting Ondansetron HCl (Zofran Odt) 4 mg SL Q6HP PRN PRN Reason: Nausea And Vomiting Sodium Chloride (Saline Flush) 10 ml IV Q8 [facility] Last Admin: 08/03/19 05:23 Dose: Not Given Documented by: Tramadol HCl (Ultram) 100 mg PO Q6HP PRN PRN Reason: Pain Last Admin: 08/02/19 20:29 Dose: 100 mg Documented by: Medical - PN: A/P - Time Spent With Patient Total time spent is greater than 50% in coordination of care (as documented) at patient's floor/unit and/or counseling patient: 25 - 35 minutes - Narrative A/P Narrative: 44-year-old male presenting with swelling to the bilateral hands, found to have rhabdomyolysis. Rhabdomyolysis. CPK >15,000 at presentation on 08/01, up over 20,000 08/02, down to 14,000 on 08/03. Etiology remains unclear, rhabdomyolysis is suspected however. Urine drug screen was putatively positive for amphetamine (could be stimulant related), though he denies use. Denies any other new medications. Does not have classic dermatomyositis skin findings, though query if this could be an autoimmune process. Less likely something more esoteric such as a capillary leak causing swelling and rhabdo. Need to consider an inflammatory myopathy if CK does not continue to improve with hydration as is expected with rhabdomyolysis. If this is a stimulant related, potentially could not have yet peaked until 08/02. Plan: Continue fluid resuscitation Monitor urine output and renal function Follow CPK Follow-up final reading of upper extremity venous duplex, though less concern for venous thrombosis at this time. Consider sending CHRISTIN and other autoimmune work-up if not improving Continues to require IV fluids and monitoring of renal function to avoid renal failure from rhabdomyolysis. Anticipate at least one further night in the hospital. Schizophrenia. Apparently the patient has been on and off his medications according to history he gave his nurse after admission. Plan: Continue home olanzapine. Hypertension. On carvedilol. Plan: Continue. Prophylaxis: Lovenox Medical - PN: Qual - VTE Deep Vein Thrombosis/Pulmonary Embolism Present on Admission: No
--- NOTE | 2019-08-03 14:43 | Internal Med Progress Note ---
Medical - PN: Subj Patient information: Note initiated : 08/03/19 at 2:41 pm Service Date, if different from initiated Date: [] Patient: Delfin Millard a 44 y/o M admitted on 08/01/19 for Hands And Feet Are Swollen. Chief Complaint: [] Interval history: 08/01 Mr. Millard is a 44 year old M with a history of schizophrenia, depression, hypertension, asthma/emphysema who presented to the emergency department with swelling of his hands arms and shoulders. History is obtained speaking with the patient, though that is a bit convoluted, as well as reviewing old records. Patient was seen back here on 06/14 and diagnosed with mild rhabdomyolysis. At that time it was thought it was because he was walking extensively between [place] and [place] to visit family. He presents again today with bilateral hands being swollen and tender and complaints of retaining fluid and being painful. Yesterday he was feeling well. He spent the day playing with his grandchildren. He was using video games. He was not using his hands for labor, catching objects, or any repetitive movements or striking motions. He states he cannot use his hands because they are too painful. He awoke last night with the onset of pain and swelling. He has had multiple fractures of his hands in the past, states the pain currently is worse than fractures. He does not think his hands are swollen up like this before. He also complains of retaining fluid in his arms and shoulders. The patient's history is vague, and sometimes circuitous. He denies any stimulant use, though he was incarcerated up until 05/12/2019 for methamphetamine possession. he is on olanzapine, but has no stigmata of a neuroleptic malignant syndrome. He did not sleep on his hands, had not been unconscious for prolonged period of time. He denies any prior episodes. Denies any similar type of episodes in the family. Is a history of schizophrenia and coronary disease in the family, no history of autoimmune disease. Upon laboratory evaluation his total CPK was found to be greater than 15,000. Renal function is stable. He is being admitted for treatment of rhabdomyolysis. 08/02 Continues to have worsening edema in the right hand and wrist (peripheral IV in the right antecubital, also pain persist with edema in the left hand. Denies any weaknesses. Has dry patches on his knees and elbows and faintly over the first knuckles of the hands. No woody findings consistent with Rotton's nodules. No rash across the upper back or chest. Some mild periorbital erythema. No fever or chills. Appetite is good. No dyspnea, no chest pain. Wants to go out and smoke. 08/03 Patient did have his upper extremity duplex repeated yesterday (ordered upper extremities, building maintenance technician initially did lower extremities). Hands are not as painful. Still with edema, but improving. Does not recall any trauma to his hands or upper extremities prior to coming in. CPKs are dropping today. 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 This was also noted on the ultrasound. - Constitutional Vitals: Vital Signs Temp Pulse Resp BP Pulse Ox 97.1 F 80 20 148/82 94 08/03/19 12:00 08/03/19 12:00 08/03/19 12:00 08/03/19 12:00 08/03/19 12:00 Period Temp Pulse Resp BP Sys/Choe Pulse Ox Last 24 Hr 97.1 F-98.8 F 58-105 18-20 121-162/60-100 94-98 Intake and Output 08/03/19 08/03/19 08/03/19 05:59 13:59 21:59 Intake Total 1000 Output Total 500 Balance 500 Intake & Output: Intake & Output 08/03/19 08/03/19 08/03/19 05:59 13:59 21:59 Intake Total 1000 Output Total 500 Balance 500 Intake: IV 1000 Sodium Chloride 0.9% 1,000 ml @ 1000 150 mls/hr IV .Q6H40M [facility] Rx#: [id number] Oral Output: Void Amount 500 Other: Urine Appearance Clear Urine Color Pale Exam: General: Alert, Awake, No acute Distress Eyes/N/T: EOMI, Head/Neck: neck supple, CV: RRR, No murmurs, Pulm: Clear b/l, no wheezing/rhonchi/rales Abd: soft, nontender, +BS x4 Ext: no clubbing/cyanosis/edema LE's. hands with R>L of nonpitting edema, minimal TTP, ROM improving Neuro: Alert, no focal deficits, moves all extremities, Skin: warm/dry Medical - PN: Obj Da - Labs CBC & Chem 7: 11/03/19 04:53 08/03/19 04:53 Labs: Abnormal Lab Results 08/03/19 08/03/19 08/03/19 04:53 04:53 04:53 WBC RBC 4.28 L Hgb 12.9 L Hct 38.8 L RDW 15.7 H MPV 7.3 L Gran # Chloride Anion Gap Creatinine 1.3 H Glucose 113 H Total Bilirubin AST Total Creatine Kinase 26284 H CK-MB (CK-2) C-React Prot High Sens Total Protein Albumin Urine Protein Urine Occult Blood Ur Amphetamines Screen U Marijuana (THC) Screen 08/02/19 08/01/19 08/01/19 05:08 18:27 18:27 WBC RBC Hgb Hct RDW MPV Gran # Chloride Anion Gap Creatinine 1.4 H Glucose 121 H Total Bilirubin AST Total Creatine Kinase 83079 H CK-MB (CK-2) C-React Prot High Sens 19.2 H Total Protein Albumin Urine Protein 100 A Urine Occult Blood 0.2 A Ur Amphetamines Screen Suspect positive A U Marijuana (THC) Screen Suspect positive A 08/01/19 08/01/19 08/01/19 17:35 17:35 17:35 WBC 12.5 H RBC Hgb Hct RDW 16.1 H MPV 7.2 L Gran # 9.2 H Chloride 95 L Anion Gap 18.0 H Creatinine 1.4 H Glucose Total Bilirubin 1.1 H AST 186 H Total Creatine Kinase 20280 H CK-MB (CK-2) 93.8 H C-React Prot High Sens Total Protein 8.6 H Albumin 5.8 H Urine Protein Urine Occult Blood Ur Amphetamines Screen U Marijuana (THC) Screen Meds: Medications Acetaminophen (Tylenol) 650 mg PO Q6HP PRN; Protocol PRN Reason: Per Pain Protocol/Fever > 101 [facility] Admin: 08/03/19 07:20 Dose: 3.125 mg Documented by: Duloxetine HCl (Cymbalta) [address] [facility] Last Admin: 08/02/19 20:28 Dose: 60 mg Documented by: Enoxaparin Sodium (Lovenox) 40 mg SQ DAILY [facility] Last Admin: 08/03/19 07:20 Dose: 40 mg Documented by: Sodium Chloride (Sodium Chloride 0.9%) 1,000 mls @ 150 mls/hr IV .Q6H40M [facility] Last Admin: 08/03/19 14:24 Dose: Not Given Documented by: Levothyroxine Sodium (Synthroid) 200 mcg PO ACB [facility] Last Admin: 08/03/19 07:20 Dose: 200 mcg Documented by: Olanzapine (Zyprexa) 15 mg PO HS [facility] Last Admin: 08/02/19 20:28 Dose: 15 mg Documented by: Omeprazole (Prilosec) 20 mg PO ACB [facility] Last Admin: 08/03/19 07:20 Dose: 20 mg Documented by: Ondansetron HCl (Zofran) 4 mg IV Q6HP PRN PRN Reason: Nausea And Vomiting Ondansetron HCl (Zofran Odt) 4 mg SL Q6HP PRN PRN Reason: Nausea And Vomiting Sodium Chloride (Saline Flush) 10 ml IV Q8 [facility] Last Admin: 08/03/19 14:14 Dose: Not Given Documented by: Tramadol HCl (Ultram) 100 mg PO Q6HP PRN PRN Reason: Pain Last Admin: 08/02/19 20:29 Dose: 100 mg Documented by: Medical - PN: A/P - Time Spent With Patient Total time spent is greater than 50% in coordination of care (as documented) at patient's floor/unit and/or counseling patient: - Narrative A/P Narrative: A: *Rhabdomyolysis. CPK >15,000 at presentation on 08/01, up over 20,000 08/02, down to 14,000 on 08/03 -Etiology remains unclear, rhabdomyolysis is suspected however. Urine drug screen was putatively positive for amphetamine (could be stimulant related), though he denies use. Denies any other new medications. Does not have classic dermatomyositis skin findings, -If this is a stimulant related, potentially could not have yet peaked until 08/02. *ADAN: 2/2 Above *b/l hand edema, R>L edema: -Pt gives a history of chronic right subclavian vein thrombosis radiology -UE u/s>>The right subclavian vein and the right internal jugular vein are not visualized. This is consistent with the supplied chronic occlusion. There are collateral vessels in the supraclavicular region. *Schizophrenia: Apparently pt has been on/off his meds according to history he gave his nurse after admission. *HTN: P: -Continue fluid resuscitation Monitor urine output and renal function Follow CPK Continues to require IV fluids and monitoring of renal function to avoid renal failure from rhabdomyolysis. Anticipate at least one further night in the hospital. -Continue home olanzapine. -cont BB -lovenox, discuss outpt anticoag with CM/Pharm -Prophylaxis: Lovenox Medical - PN: Qual - VTE Deep Vein Thrombosis/Pulmonary Embolism Present on Admission: No
[2019-08-03] MEDS: DULoxetine 30 MG CAPSULE PO SCH (20:51)
[2019-08-03] MEDS: OLANZapine 5 MG TABLET PO SCH (20:51)
[2019-08-03] MEDS: ENOXAPARIN 120 MG/0.8 ML SYRINGE SQ SCH (20:51)
[2019-08-04] MEDS: 0.9 % SODIUM CHLORIDE 1,000 ML IV SCH ×2 (00:23→11:54)
[2019-08-04] MEDS: 0.9 % SODIUM CHLORIDE 10 ML SYRINGE IV SCH ×2 (04:41→17:21)
[2019-08-04 07:24] LABS: ALT/SGPT 35 U/l (0-40); AST/SGOT 172 U/l (0-37); Albumin 4.7 gm/dL (3.2-5.2); Albumin/Globulin Ratio 1.7 (1.0-2.3); Alkaline Phosphatase 64 U/L (39-117); Bilirubin,Direct < 0.2 mg/dL (0.0-0.3); Bilirubin,Total 0.7 mg/dL (0.0-1.0); Blood Urea Nitrogen 7 mg/dl (6-20); Calcium 9.1 mg/dl (8.6-10.4); Carbon Dioxide 26 mmol/L (22-30); Chloride 104 mmol/L (96-108); Creatine Kinase 10709 IU/L (24-195); Globulin 2.8 gm/dL (2.2-3.7); Glomerular Filtration Rate 67; Glucose 106 mg/dL (70-105); Lactate Dehydrogenase 744 U/L (94-250); Phosphorous 2.8 mg/dL (2.7-4.5); Triglycerides 126 mg/dl (<150); Uric Acid 5.9 mg/dL (2.5-8.0)
[2019-08-04] MEDS: OMEPRAZOLE 20 MG CAPSULE PO SCH (08:02)
[2019-08-04] MEDS: LEVOTHYROXINE 100 MCG TABLET PO SCH (08:02)
[2019-08-04] MEDS: CARVEDILOL 3.125 MG TABLET PO SCH ×2 (08:02→17:20)
--- NOTE | 2019-08-04 08:19 | Internal Med Progress Note ---
Medical - PN: Subj Patient information: Note initiated : 08/04/19 at 8:14 am Service Date, if different from initiated Date: [] Patient: Delfin Millard a 44 y/o M admitted on 08/01/19 for Hands And Feet Are Swollen. Chief Complaint: [] Interval history: 08/01 Mr. Millard is a 44 year old M with a history of schizophrenia, depression, hypertension, asthma/emphysema who presented to the emergency department with swelling of his hands arms and shoulders. History is obtained speaking with the patient, though that is a bit convoluted, as well as reviewing old records. Patient was seen back here on 06/14 and diagnosed with mild rhabdomyolysis. At that time it was thought it was because he was walking extensively between [place] and [place] to visit family. He presents again today with bilateral hands being swollen and tender and complaints of retaining fluid and being painful. Yesterday he was feeling well. He spent the day playing with his grandchildren. He was using video games. He was not using his hands for labor, catching objects, or any repetitive movements or striking motions. He states he cannot use his hands because they are too painful. He awoke last night with the onset of pain and swelling. He has had multiple fractures of his hands in the past, states the pain currently is worse than fractures. He does not think his hands are swollen up like this before. He also complains of retaining fluid in his arms and shoulders. The patient's history is vague, and sometimes circuitous. He denies any stimulant use, though he was incarcerated up until 05/12/2019 for methamphetamine possession. he is on olanzapine, but has no stigmata of a neuroleptic malignant syndrome. He did not sleep on his hands, had not been unconscious for prolonged period of time. He denies any prior episodes. Denies any similar type of episodes in the family. Is a history of schizophrenia and coronary disease in the family, no history of autoimmune disease. Upon laboratory evaluation his total CPK was found to be greater than 15,000. Renal function is stable. He is being admitted for treatment of rhabdomyolysis. 08/02 Continues to have worsening edema in the right hand and wrist (peripheral IV in the right antecubital, also pain persist with edema in the left hand. Denies any weaknesses. Has dry patches on his knees and elbows and faintly over the first knuckles of the hands. No woody findings consistent with Rotton's nodules. No rash across the upper back or chest. Some mild periorbital erythema. No fever or chills. Appetite is good. No dyspnea, no chest pain. Wants to go out and smoke. 08/03 Patient did have his upper extremity duplex repeated yesterday (ordered upper extremities, windows laptop technician initially did lower extremities). Hands are not as painful. Still with edema, but improving. Does not recall any trauma to his hands or upper extremities prior to coming in. CPKs are dropping today. 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 This was also noted on the ultrasound. 08/04 No issues overnight or new complaints or complaints. Patient urinating well. She feels he is able to move his hands more even compared to yesterday. Review of Systems: denies headache/fever/chills/nausea/vomiting/chest or abdominal pain/cough/dyspnea/diarrhea. Otherwise see above. - Constitutional Vitals: Vital Signs Temp Pulse Resp BP Pulse Ox 97.7 F 75 14 139/77 96 08/04/19 04:40 08/04/19 04:40 08/04/19 04:40 08/04/19 04:40 08/04/19 04:40 Period Temp Pulse Resp BP Sys/Choe Pulse Ox Last 24 Hr 97.1 F-99.6 F 68-80 14-20 139-157/75-83 93-97 Intake and Output 08/03/19 08/04/19 08/04/19 21:59 05:59 13:59 Intake Total 910 1565 Output Total 3600 2225 Balance -2690 -660 Weight 129.047 kg Intake & Output: Intake & Output 08/03/19 08/04/19 08/04/19 21:59 05:59 13:59 Intake Total 910 1565 Output Total 3600 2225 Balance -2690 -660 Weight 129.047 kg Intake: IV 840 Sodium Chloride 0.9% 1,000 ml @ 840 125 mls/hr IV .Q8H [id number] Rx#: [id number] Oral 910 725 Output: Void Amount 3600 2225 Other: Meal Lunch Percent of Meal Consumed 50% Urine Color Pale Pale Exam: General: Alert, Awake, No acute Distress Eyes/N/T: EOMI, Head/Neck: neck supple, CV: RRR, No murmurs, Pulm: Clear b/l, no wheezing/rhonchi/rales Abd: soft, nontender, +BS x4 Ext: no clubbing/cyanosis, trace b/l LE edema. hands with R>L of nonpitting edema, minimal TTP, ROM improving Neuro: Alert, no focal deficits, moves all extremities, Skin: warm/dry Medical - PN: Obj Da - Labs CBC & Chem 7: 08/03/19 04:53 08/04/19 05:10 Labs: Abnormal Lab Results 08/04/19 08/03/19 08/03/19 05:10 04:53 04:53 WBC RBC 4.28 L Hgb 12.9 L Hct 38.8 L RDW 15.7 H MPV 7.3 L Gran # Chloride Anion Gap Creatinine 1.3 H 1.3 H Glucose 106 H 113 H Total Bilirubin AST 172 H Lactate Dehydrogenase 744 H Total Creatine Kinase 02042 H CK-MB (CK-2) C-React Prot High Sens Total Protein Albumin Urine Protein Urine Occult Blood Ur Amphetamines Screen U Marijuana (THC) Screen 08/03/19 08/02/19 08/01/19 04:53 05:08 18:27 WBC RBC Hgb Hct RDW MPV Gran # Chloride Anion Gap Creatinine 1.4 H Glucose 121 H Total Bilirubin AST Lactate Dehydrogenase Total Creatine Kinase 85978 H 11304 H CK-MB (CK-2) C-React Prot High Sens 19.2 H Total Protein Albumin Urine Protein Urine Occult Blood Ur Amphetamines Screen Suspect positive A U Marijuana (THC) Screen Suspect positive A 08/01/19 08/01/19 08/01/19 18:27 17:35 17:35 WBC RBC Hgb Hct RDW MPV Gran # Chloride 95 L Anion Gap 18.0 H Creatinine 1.4 H Glucose Total Bilirubin 1.1 H AST 186 H Lactate Dehydrogenase Total Creatine Kinase 72416 H CK-MB (CK-2) 93.8 H C-React Prot High Sens Total Protein 8.6 H Albumin 5.8 H Urine Protein 100 A Urine Occult Blood 0.2 A Ur Amphetamines Screen U Marijuana (THC) Screen 08/01/19 17:35 WBC 12.5 H RBC Hgb Hct RDW 16.1 H MPV 7.2 L Gran # 9.2 H Chloride Anion Gap Creatinine Glucose Total Bilirubin AST Lactate Dehydrogenase Total Creatine Kinase CK-MB (CK-2) C-React Prot High Sens Total Protein Albumin Urine Protein Urine Occult Blood Ur Amphetamines Screen U Marijuana (THC) Screen Meds: Medications Acetaminophen (Tylenol) 650 mg PO Q6HP PRN; Protocol PRN Reason: Per Pain Protocol/Fever > 101 [facility] Last Admin: 08/04/19 08:02 Dose: 3.125 mg Documented by: Duloxetine HCl (Cymbalta) 60 mg PO [facility] Last Admin: 08/03/19 20:51 Dose: 60 mg Documented by: Enoxaparin Sodium (Lovenox) 120 mg SQ BID [facility] Last Admin: 08/03/19 20:51 Dose: 120 mg Documented by: Sodium Chloride (Sodium Chloride 0.9%) 1,000 mls @ 125 mls/hr IV .Q8H [facility] Last Admin: 08/04/19 00:23 Dose: 125 mls/hr Documented by: Levothyroxine Sodium (Synthroid) 200 mcg PO ACB [facility] Last Admin: 08/04/19 08:02 Dose: 200 mcg Documented by: Olanzapine (Zyprexa) 15 mg PO [facility] Last Admin: 08/03/19 20:51 Dose: 15 mg Documented by: Omeprazole (Prilosec) 20 mg PO ACB [facility] Last Admin: 08/04/19 08:02 Dose: 20 mg Documented by: Ondansetron HCl (Zofran) 4 mg IV Q6HP PRN PRN Reason: Nausea And Vomiting Ondansetron HCl (Zofran Odt) 4 mg SL Q6HP PRN PRN Reason: Nausea And Vomiting Sodium Chloride (Saline Flush) 10 ml IV Q8 [facility] Last Admin: 08/04/19 04:41 Dose: Not Given Documented by: Tramadol HCl (Ultram) 100 mg PO Q6HP PRN PRN Reason: Pain Last Admin: 08/02/19 20:29 Dose: 100 mg Documented by: Medical - PN: A/P - Time Spent With Patient Total time spent is greater than 50% in coordination of care (as documented) at patient's floor/unit and/or counseling patient: - Narrative A/P Narrative: A: *Rhabdomyolysis: CPK >15k at presentation on 08/01, up over 20k 08/02, down to 10k -Etiology remains unclear, rhabdomyolysis is suspected however. Urine drug screen was putatively positive for amphetamine (could be stimulant related), though he denies use. Denies any other new medications. Does not have classic dermatomyositis skin findings, -If this is a stimulant related, potentially could not have yet peaked until 08/02. *??ADAN on CKD III: 11/02 Above -good UOP *b/l hand edema, R>L edema: improving with increased ROM -Pt gives a history of chronic right subclavian vein thrombosis radiology -UE u/s>>The right subclavian vein and the right internal jugular vein are not visualized. This is consistent with the supplied chronic occlusion. There are collateral vessels in the supraclavicular region. *Schizophrenia: Apparently pt has been on/off his meds according to history he gave his nurse after admission. *HTN: P: -decrease IVF's Monitor urine output and renal function Follow CPK -Continue home olanzapine (decrease) -cont BB -[facility] Medical - PN: Qual - VTE Deep Vein Thrombosis/Pulmonary Embolism Present on Admission: No
[2019-08-04] MEDS ORDERED: 0.9 % SODIUM CHLORIDE 1,000 ML IV SCH (09:14)
[2019-08-04] MEDS: APIXABAN 5 MG TABLET PO SCH ×2 (10:42→20:19)
[2019-08-04] MEDS: ENOXAPARIN 120 MG/0.8 ML SYRINGE SQ SCH (11:56)
[2019-08-04] MEDS: DULoxetine 30 MG CAPSULE PO SCH (20:19)
[2019-08-04] MEDS ORDERED: OLANZapine 5 MG TABLET PO SCH (21:00)
[2019-08-05] MEDS: 0.9 % SODIUM CHLORIDE 10 ML SYRINGE IV SCH ×2 (01:00→07:49)
[2019-08-05 07:28] LABS: Blood Urea Nitrogen 8 mg/dl (6-20); Calcium 9.2 mg/dl (8.6-10.4); Carbon Dioxide 23 mmol/L (22-30); Chloride 100 mmol/L (96-108); Glomerular Filtration Rate 62; Glucose 102 mg/dL (70-105)
[2019-08-05] MEDS: OMEPRAZOLE 20 MG CAPSULE PO SCH (07:47)
[2019-08-05] MEDS: LEVOTHYROXINE 100 MCG TABLET PO SCH (07:47)
[2019-08-05] MEDS: CARVEDILOL 3.125 MG TABLET PO SCH (07:47)
[2019-08-05] MEDS: APIXABAN 5 MG TABLET PO SCH (07:47)
--- NOTE | 2019-08-05 07:51 | Internal Med Progress Note ---
Medical - PN: Subj Patient information: Note initiated : 08/05/19 at 7:47 am Service Date, if different from initiated Date: [] Patient: Delfin Millard a 44 y/o M admitted on 08/01/19 for Hands And Feet Are Swollen. Chief Complaint: [] Interval history: 08/01 Mr. Millard is a 44 year old M with a history of schizophrenia, depression, hypertension, asthma/emphysema who presented to the emergency department with swelling of his hands arms and shoulders. History is obtained speaking with the patient, though that is a bit convoluted, as well as reviewing old records. Patient was seen back here on 06/14 and diagnosed with mild rhabdomyolysis. At that time it was thought it was because he was walking extensively between [place] and [place] to visit family. He presents again today with bilateral hands being swollen and tender and complaints of retaining fluid and being painful. Yesterday he was feeling well. He spent the day playing with his grandchildren. He was using video games. He was not using his hands for labor, catching objects, or any repetitive movements or striking motions. He states he cannot use his hands because they are too painful. He awoke last night with the onset of pain and swelling. He has had multiple fractures of his hands in the past, states the pain currently is worse than fractures. He does not think his hands are swollen up like this before. He also complains of retaining fluid in his arms and shoulders. The patient's history is vague, and sometimes circuitous. He denies any stimulant use, though he was incarcerated up until 05/12/2019 for methamphetamine possession. he is on olanzapine, but has no stigmata of a neuroleptic malignant syndrome. He did not sleep on his hands, had not been unconscious for prolonged period of time. He denies any prior episodes. Denies any similar type of episodes in the family. Is a history of schizophrenia and coronary disease in the family, no history of autoimmune disease. Upon laboratory evaluation his total CPK was found to be greater than 15,000. Renal function is stable. He is being admitted for treatment of rhabdomyolysis. 08/02 Continues to have worsening edema in the right hand and wrist (peripheral IV in the right antecubital, also pain persist with edema in the left hand. Denies any weaknesses. Has dry patches on his knees and elbows and faintly over the first knuckles of the hands. No woody findings consistent with Rotton's nodules. No rash across the upper back or chest. Some mild periorbital erythema. No fever or chills. Appetite is good. No dyspnea, no chest pain. Wants to go out and smoke. 08/03 Patient did have his upper extremity duplex repeated yesterday (ordered upper extremities, maintenance technician 2nd shift initially did lower extremities). Hands are not as painful. Still with edema, but improving. Does not recall any trauma to his hands or upper extremities prior to coming in. CPKs are dropping today. 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 This was also noted on the ultrasound. 08/04 No issues overnight or new complaints or complaints. Patient urinating well. She feels he is able to move his hands more even compared to yesterday. 08/05 Patient states his hand swelling continues to improve gradually. He has much better range of motion. He reports that he only takes half of the 15 mg olanzapine pill. Denies any other pains or complaints. CPK 10,000 yesterday awaiting today's lab. Patient on the brink of leaving AMA. I explained that I needed to follow- up on today's CK given how high it has been. Review of Systems: denies headache/fever/chills/nausea/vomiting/chest or abdominal pain /cough/dyspnea/diarrhea. Otherwise see above. - Constitutional Vitals: Vital Signs Temp Pulse Resp BP Pulse Ox 98.1 F 60 16 149/78 95 08/05/19 03:29 08/05/19 03:29 08/05/19 03:29 08/05/19 03:29 08/05/19 03:29 Period Temp Pulse Resp BP Sys/Choe Pulse Ox Last 24 Hr 97.5 F-98.3 F 57-73 14-18 148-154/77-93 94-96 Intake and Output 08/04/19 08/05/19 08/05/19 21:59 05:59 13:59 Intake Total 520 1409 Output Total 1625 400 Balance -1105 1009 Weight 125.418 kg Intake & Output: Intake & Output 08/04/19 08/05/19 08/05/19 21:59 05:59 13:59 Intake Total 520 1409 Output Total 1625 400 Balance -1105 1009 Weight 125.418 kg Intake: IV 909 Sodium Chloride 0.9% 1,000 ml @ 909 50 mls/hr IV .Q20H [facility] Rx#: [id number] Oral 520 500 Output: Void Amount 1625 400 Other: Meal Dinner Percent of Meal Consumed Refused Urine Appearance Clear Urine Color Bright Yellow Bright Yellow Urine Odor Normal Exam: General: Alert, Awake, No acute Distress Eyes/N/T: EOMI, Head/Neck: neck supple, CV: RRR, No murmurs, Pulm: Clear b/l, no wheezing/rhonchi/rales Abd: soft, nontender, +BS x4 Ext: no clubbing/cyanosis, trace b/l LE edema. hands with R>L of nonpitting edema improving, , ROM continues to improve Neuro: Alert, no focal deficits, moves all extremities, Skin: warm/dry Medical - PN: Obj Da - Labs CBC & Chem 7: 08/03/19 04:53 08/05/19 05:20 Labs: Abnormal Lab Results 08/05/19 08/04/19 08/03/19 05:20 05:10 04:53 RBC Hgb Hct RDW MPV Creatinine 1.4 H 1.3 H 1.3 H Glucose 106 H 113 H AST 172 H Lactate Dehydrogenase 744 H Total Creatine Kinase 83990 H 08/03/19 08/03/19 04:53 04:53 RBC 4.28 L Hgb 12.9 L Hct 38.8 L RDW 15.7 H MPV 7.3 L Creatinine Glucose AST Lactate Dehydrogenase Total Creatine Kinase 34794 H Meds: Medications Acetaminophen (Tylenol) 650 mg PO Q6HP PRN; Protocol PRN Reason: Per Pain Protocol/Fever > 101 Apixaban (Eliquis) 10 mg PO BID [facility] Stop: 08/10/19 21:01 Last Admin: 08/04/19 20:19 Dose: 10 mg Documented by: Carvedilol (Coreg) 3.125 mg PO BIDCC [facility] Last Admin: 08/04/19 17:20 Dose: 3.125 mg Documented by: Duloxetine HCl (Cymbalta) 60 mg PO HS [facility] Last Admin: 08/04/19 20:19 Dose: 60 mg Documented by: Levothyroxine Sodium (Synthroid) 200 mcg PO ACB [facility] Last Admin: 08/04/19 08:02 Dose: 200 mcg Documented by: Olanzapine (Zyprexa) 10 mg PO HS [facility] Last Admin: 08/04/19 20:19 Dose: 10 mg Documented by: Omeprazole (Prilosec) 20 mg PO ACB [facility] Last Admin: 08/04/19 08:02 Dose: 20 mg Documented by: Ondansetron HCl (Zofran) 4 mg IV Q6HP PRN PRN Reason: Nausea And Vomiting Ondansetron HCl (Zofran Odt) 4 mg SL Q6HP PRN PRN Reason: Nausea And Vomiting Sodium Chloride (Saline Flush) 10 ml IV Q8 [facility] Last Admin: 08/05/19 01:00 Dose: Not Given Documented by: Tramadol HCl (Ultram) 100 mg PO Q6HP PRN PRN Reason: Pain Last Admin: 08/02/19 20:29 Dose: 100 mg Documented by: Medical - PN: A/P - Time Spent With Patient Total time spent is greater than 50% in coordination of care (as documented) at patient's floor/unit and/or counseling patient: - Narrative A/P Narrative: A: *Rhabdomyolysis: CPK >15k at presentation on 08/01, up over 20k 08/02, 10k yesterday, pending today lab -Etiology remains unclear, rhabdomyolysis is suspected however. Urine drug screen was putatively positive for amphetamine (could be stimulant related), though he denies use. Denies any other new medications. Does not have classic dermatomyositis skin findings, -If this is a stimulant related, potentially could not have yet peaked until 08/02. *CKD III: -good UOP *b/l hand edema, R>L edema: improving with increased ROM -Pt gives a history of chronic right subclavian vein thrombosis radiology -UE u/s>>The right subclavian vein and the right internal jugular vein are not visualized. This is consistent with the supplied chronic occlusion. There are collateral vessels in the supraclavicular region. *Right subclavian vein thrombosis: noted to be Chronic, however, with increased swelling in right hand will treat with anticoag *Schizophrenia: Apparently pt has been on/off his meds according to history he gave his nurse after admission. *HTN: P: -d/c IVF's good UOP and stable renal fxn Follow CPK -She states home olanzapine dose is half of a 15mg pill -cont BB -[facility]iquis Medical - PN: Qual - VTE Deep Vein Thrombosis/Pulmonary Embolism Present on Admission: No
[2019-08-05 07:52] LABS: Creatine Kinase 6301 IU/L (24-195)
--- NOTE | 2019-08-05 08:31 | Discharge Summary ---
Medical - DS: Prov Patient information: Note initiated : 08/05/19 at 8:28 am Service Date, if different from initiated Date: [] Patient: Delfin Millard 44 y/o M admitted on 08/01/19 for Hands And Feet Are Swollen. Chief Complaint: [] Date of admission: 08/01/19 23:40 Discharge date: 08/05/19 Consults: 08/01/19 Consult to Physician [CONS] Stat Comment: Consulting Provider: Salud Michaud Reason For Exam: Physician to Consult Medical - DS: Meds - Discharge Medications Prescriptions: OLANZapine [Zyprexa] 7.5 mg PO QHS #1 tablet Apixaban [Eliquis] 10 mg PO BID #60 tab Transmission Status: Pending to [facility] #[id number] Active and Home Medications: Home Medications Carvedilol [Coreg] 3.125 mg PO BID 06/14/19 [History Confirmed 08/02/19 Last Taken 07/27/19 04:30] DULoxetine [Cymbalta] 60 mg PO QHS 06/14/19 [History Confirmed 08/02/19 Last Taken 07/27/19 21:00] OLANZapine [Zyprexa] 15 mg PO QHS 06/14/19 [History Confirmed 08/02/19 Last Taken 07/31/19 23:30 7.5 mg] Omeprazole [Prilosec] 20 mg PO DAILY 06/14/19 [History Confirmed 08/02/19 Last Taken 07/27/19 04:30] Proair Hfa 90 mg PO DAILY 06/14/19 [History Confirmed 08/02/19 Last Taken 07/31 21:00] Hydrochlorothiazide [Oretic] 25 mg PO QDAY 08/01/19 [History Confirmed 08/02/19 Last Taken 07/29/19 04:30] Levothyroxine Sodium 200 mcg PO QDAY 08/01/19 [History Confirmed 08/02/19 Last Taken 07/27/19 04:30] Levothyroxine [Synthroid] 50 mcg PO DAILY 08/02/19 [History Confirmed 08/02/19 Last Taken Unknown] Home Medications Carvedilol [Coreg] 3.125 mg PO BID 06/14/19 [History Confirmed 08/02/19 Last Taken 07/27/19 04:30] DULoxetine [Cymbalta] 60 mg PO QHS 06/14/19 [History Confirmed 08/02/19 Last Taken 07/27/19 21:00] Omeprazole [Prilosec] 20 mg PO DAILY 06/14/19 [History Confirmed 08/02/19 Last Taken 07/27/19 04:30] Proair Hfa 90 mg PO DAILY 06/14/19 [History Confirmed 08/02/19 Last Taken 07/31/19 21:00] Hydrochlorothiazide [Oretic] 25 mg PO QDAY 08/01/19 [History Confirmed 08/02/19 Last Taken 07/29/19 04:30] Levothyroxine Sodium 200 mcg PO QDAY 08/01/19 [History Confirmed 08/02/19 Last Taken 07/27/19 04:30] Levothyroxine [Synthroid] 50 mcg PO DAILY 08/02/19 [History Confirmed 08/02/19 Last Taken Unknown] Apixaban [Eliquis] 10 mg PO BID #60 tab 08/05/19 [Rx Last Taken Unknown] OLANZapine [Zyprexa] 7.5 mg PO QHS #1 tablet 08/05/19 [Rx Last Taken Unknown] Medical - DS: Hosp Hospital Course: 08/01 Mr. Millard is a 44 year old M with a history of schizophrenia, depression, hypertension, asthma/emphysema who presented to the emergency department with swelling of his hands arms and shoulders. History is obtained speaking with the patient, though that is a bit convoluted, as well as reviewing old records. Patient was seen back here on 06/14 and diagnosed with mild rhabdomyolysis. At that time it was thought it was because he was walking extensively between [place] and [place] to visit family. He presents again today with bilateral hands being swollen and tender and complaints of retaining fluid and being painful. Yesterday he was feeling well. He spent the day playing with his grandchildren. He was using video games. He was not using his hands for labor, catching objects, or any repetitive movements or striking motions. He states he cannot use his hands because they are too painful. He awoke last night with the onset of pain and swelling. He has had multiple fractures of his hands in the past, states the pain currently is worse than fractures. He does not think his hands are swollen up like this before. He also complains of retaining fluid in his arms and shoulders. The patient's history is vague, and sometimes circuitous. He denies any stimulant use, though he was incarcerated up until 05/12/2019 for methamphetamine possession. he is on olanzapine, but has no stigmata of a neuroleptic malignant syndrome. He did not sleep on his hands, had not been unconscious for prolonged period of time. He denies any prior episodes. Denies any similar type of episodes in the family. Is a history of schizophrenia and coronary disease in the family, no history of autoimmune disease. Upon laboratory evaluation his total CPK was found to be greater than 15,000. Renal function is stable. He is being admitted for treatment of rhabdomyolysis. 08/02 Continues to have worsening edema in the right hand and wrist (peripheral IV in the right antecubital, also pain persist with edema in the left hand. Denies any weaknesses. Has dry patches on his knees and elbows and faintly over the first knuckles of the hands. No woody findings consistent with Rotton's nodules. No rash across the upper back or chest. Some mild periorbital erythema. No fever or chills. Appetite is good. No dyspnea, no chest pain. Wants to go out and smoke. 08/03 Patient did have his upper extremity duplex repeated yesterday (ordered upper extremities, master automotive technician initially did lower extremities). Hands are not as painful. Still with edema, but improving. Does not recall any trauma to his hands or upper extremities prior to coming in. CPKs are dropping today. 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 This was also noted on the ultrasound. 08/04 No issues overnight or new complaints or complaints. Patient urinating well. She feels he is able to move his hands more even compared to yesterday. 08/05 Patient states his hand swelling continues to improve gradually. He has much better range of motion. He reports that he only takes half of the 15 mg olanzapine pill. Denies any other pains or complaints. CPK 10,000 yesterday awaiting today's lab. Patient on the brink of leaving AMA. I explained that I needed to follow-up on today's CK given how high it has been. Renal function stable, appears to be baseline. CPK is dropped down to 6000 from 20,000. Patient feeling well. Discharge diagnosis: rhabodmyelosis secondary to methamphetamines subclavian vein thrombosis Secondary discharge diagnosis: Chronic kidneys schizophrenia hypertension - Time Spent with Patient Total time spent providing and/or coordinating discharge services: Greater than 30 minutes Medical - DS: Exam - Constitutional Vitals: Vital Signs Temp Pulse Resp BP BP Pulse Ox 08/05/19 03:29 98.1 F 60 16 149/78 95 08/04/19 23:27 98.2 F 60 16 148/77 95 08/04/19 19:00 98.1 F 73 16 154/81 96 08/04/19 16:00 98.3 F 67 18 154/93 94 08/04/19 12:00 97.5 F 66 14 149/89 94 Intake and Output 08/04/19 08/05/19 08/05/19 21:59 05:59 13:59 Intake Total 520 1409 Output Total 1625 400 Balance -1105 1009 Intake: IV 909 Sodium Chloride 0.9% 1,000 ml @ 909 50 mls/hr IV .Q20H [facility] Rx#: [id number] Oral 520 500 Output: Void Amount 1625 400 Other: Meal Dinner Percent of Meal Consumed Refused Urine Appearance Clear Urine Color Bright Yellow Bright Yellow Urine Odor Normal Weight 125.418 kg Medical - DS: Data Labs on day of discharge: Labs from last 24 hours 08/05/19 08/05/19 05:20 05:20 Sodium 138 Potassium 3.9 Chloride 100 Carbon Dioxide 23 Anion Gap 15.0 BUN 8 Creatinine 1.4 H GFR Calculation 62 Glucose 102 Calcium 9.2 Total Creatine Kinase 6301 H Medical - DS: A/P - Patient/Caregiver Discharge Instructions Activity: increase activity as tolerated Diet: Regular Diet Additional Instructions: Patient is being admitted to the hospital under the care of Dr. Jensen presents hospitalist) sees. All further treatment decisions to be carried out by the hospitalist service at this time. - Follow up Plan Disposition: Home, Self-Care Prognosis: Undetermined Rehab Potential: Fair Overall status at discharge: patient is progressing back to baseline Medical - DS: Qual - VTE Deep Vein Thrombosis/Pulmonary Embolism Present on Admission: No
[2019-08-09 17:28] LABS: Cannabinoid Confirmation POSITIVE (N)
== END 2019-08-05 11:15 | disposition home or self-care (01) | DRG 558 ==
LOC: ED 16:05 → MEDSUR 23:40
PROVIDERS: ADMIT Internal Medicine; ATTEND Internal Medicine

== ENCOUNTER 2024-03-15 09:44 | Inpatient (IN) ==
[2024-03-15] MEDS: IPRATROPIUM/ALBUTEROL 3 ML AMPUL.NEB NEB ONE (10:50)
[2024-03-15] MEDS: FUROSEMIDE 40 MG/4 ML VIAL IV ONE (11:16)
[2024-03-15] MEDS: FUROSEMIDE 40 MG TABLET PO ONE (11:30)
[2024-03-15 11:47] LABS: Basophils # (Auto) 0.02 K/mcL (0.00-0.30); Basophils % (Auto) 0.3 % (0.0-2.0); Eosinophils # (Auto) 0.01 K/mcL (0.00-0.70); Eosinophils % (Auto) 0.1 % (0.0-7.0); Hematocrit 38.7 % (40.1-51.0); Hemoglobin 11.7 g/dL (13.7-17.5); Lymphocytes # (Auto) 0.63 K/mcL (1.50-4.80); Lymphocytes % (Auto) 8.8 % (15.5-49.0); Mean Cell Volume 93.7 fL (80.0-100.0); Mean Corpuscular HGB Conc 30.2 g/dL (31.0-36.0); Mean Platelet Volume 10.7 fL (8.8-12.5); Monocytes # (Auto) 0.55 K/mcL (0.10-0.90); Monocytes % (Auto) 7.7 % (1.0-12.0); Neutrophils % (Auto) 82.5 % (38.0-78.0); Platelet Count 236 K/mcL (140-440); RBC 4.13 M/mcL (4.63-6.08); Red Cell Distribution Width 19.4 % (11.5-14.5); WBC 7.1 K/mcL (4.5-11.0)
[2024-03-15 11:50] LABS: C-Reactive Protein 3.58 mg/dL (0.03-0.80)
[2024-03-15] MEDS: SODIUM CHLORIDE IV ONE (11:52)
[2024-03-15 12:23] LABS: ALT/SGPT 16 U/L (<40); AST/SGOT 40 U/L (<40); Albumin 3.8 gm/dL (3.2-5.2); Albumin/Globulin Ratio 1.2 (1.0-2.3); Alkaline Phosphatase 362 U/L (39-117); Bilirubin,Total 2.6 mg/dL (0.1-1.0); Blood Urea Nitrogen 15 mg/dL (6-20); Calcium 9.2 mg/dL (8.6-10.4); Carbon Dioxide 24 mmol/L (22-30); Chloride 94 mmol/L (96-108); Globulin 3.1 gm/dL (2.2-3.7); Glomerular Filtration Rate 89; Glucose 93 mg/dL (70-105)
[2024-03-15 13:59] LABS: INR 1.4 (0.9-1.1); Partial Thromboplastin Time 33.8 sec (20.0-37.0); Prothrombin Time 18.1 sec (11.9-14.5)
[2024-03-15 15:43] LABS: Amphetamine Screen,Urine Suspect positive; Barbiturate Screen,Urine None detected; Benzodiazepines Screen,Urine None detected; Cannabinoid Screen,Urine Suspect Positive; Cocaine Screen,Urine None detected; Opiate Screen,Urine None detected; Oxycodone, Urine Screen None detected; Phencyclidine Screen,Urine None detected
[2024-03-15 16:15] LABS: Amylase,Pleural Fluid 21 U/L; Glucose,Pleural Fluid 97 mg/dL; LDH,Pleural Fluid 72 U/L (<122)
[2024-03-15] MEDS ORDERED: ACETAMINOPHEN 325 MG TABLET PO PRN (16:17)
[2024-03-15] MEDS ORDERED: LACTULOSE 20 GM/30 ML ORAL.SOL PO PRN (16:17)
[2024-03-15] MEDS ORDERED: SENNOSIDES 1 TABLET PO PRN (16:17)
[2024-03-15 17:26] LABS: ALT/SGPT 16 U/L (<40); AST/SGOT 40 U/L (<40); Albumin 3.7 gm/dL (3.2-5.2); Albumin/Globulin Ratio 1.2 (1.0-2.3); Alkaline Phosphatase 378 U/L (39-117); Bilirubin,Total 2.7 mg/dL (0.1-1.0); Blood Urea Nitrogen 15 mg/dL (6-20); Calcium 9.1 mg/dL (8.6-10.4); Carbon Dioxide 26 mmol/L (22-30); Chloride 93 mmol/L (96-108); Globulin 3.1 gm/dL (2.2-3.7); Glomerular Filtration Rate 102; Glucose 113 mg/dL (70-105)
[2024-03-15] MEDS: FUROSEMIDE 40 MG/4 ML VIAL IV SCH (17:35)
[2024-03-15] MEDS: 0.9 % SODIUM CHLORIDE 10 ML SYRINGE IV SCH (17:36)
[2024-03-15 17:52] LABS: Appearance,Pleural Fluid Clear; Color,Pleural Fluid Yellow; Lymphocytes,Pleural Fluid 23 %; Mesothelial,Pleural Fluid 16 %; Monocytes,Pleural Fluid 13 %; Neutrophils,Pleural Fluid 48 %; Nucleated Cells,Pleural Fld 147 /cumm; RBC,Pleural Fluid <50,000 /cumm
[2024-03-15] MEDS: oxyCODONE/APAP 5/325MG TABLET PO PRN (18:32)
[2024-03-15] MEDS: IPRATROPIUM/ALBUTEROL 3 ML AMPUL.NEB NEB SCH (18:49)
[2024-03-15] MEDS: BUDESONIDE 0.5 MG/2 ML AMPUL.NEB NEB SCH (18:49)
[2024-03-15] MEDS ORDERED: IPRATROPIUM/ALBUTEROL 3 ML AMPUL.NEB NEB SCH (19:00)
[2024-03-15] MEDS: BUDESONIDE 0.5 MG/2 ML AMPUL.NEB ONE (19:16)
[2024-03-16 14:52] LABS: Basophils # (Auto) 0.01 K/mcL (0.00-0.30); Basophils % (Auto) 0.1 % (0.0-2.0); Eosinophils # (Auto) 0.03 K/mcL (0.00-0.70); Eosinophils % (Auto) 0.3 % (0.0-7.0); Hematocrit 38.1 % (40.1-51.0); Hemoglobin 11.6 g/dL (13.7-17.5); Lymphocytes # (Auto) 0.76 K/mcL (1.50-4.80); Lymphocytes % (Auto) 7.5 % (15.5-49.0); Mean Cell Volume 92.5 fL (80.0-100.0); Mean Corpuscular HGB Conc 30.4 g/dL (31.0-36.0); Mean Platelet Volume 9.4 fL (8.8-12.5); Monocytes # (Auto) 0.46 K/mcL (0.10-0.90); Monocytes % (Auto) 4.5 % (1.0-12.0); Neutrophils % (Auto) 87.3 % (38.0-78.0); Platelet Count 255 K/mcL (140-440); RBC 4.12 M/mcL (4.63-6.08); WBC 10.2 K/mcL (4.5-11.0)
[2024-03-16 15:16] LABS: ALT/SGPT 13 U/L (<40); AST/SGOT 33 U/L (<40); Albumin 3.6 gm/dL (3.2-5.2); Albumin/Globulin Ratio 1.3 (1.0-2.3); Alkaline Phosphatase 336 U/L (39-117); Bilirubin,Total 1.8 mg/dL (0.1-1.0); Blood Urea Nitrogen 18 mg/dL (6-20); Calcium 8.6 mg/dL (8.6-10.4); Carbon Dioxide 31 mmol/L (22-30); Chloride 91 mmol/L (96-108); Globulin 2.8 gm/dL (2.2-3.7); Glomerular Filtration Rate 89; Glucose 67 mg/dL (70-105)
[2024-03-16] MEDS: LORazepam 2 MG/ML VIAL IV ONE ×2 (16:15→16:21)
[2024-03-16] MEDS: NICOTINE 14 MG PATCH TOPICAL SCH (17:48)
[2024-03-16] MEDS: METOPROLOL TARTRATE 5 MG/5 ML VIAL IV ONE (18:52)
[2024-03-16] MEDS: POTASSIUM CHLORIDE 20 MEQ TABLET PO SCH (19:38)
[2024-03-16] MEDS: MAGNESIUM SULFATE 1 GM/100 ML BAG IV SCH (19:39)
[2024-03-16] MEDS: MAGNESIUM SULFATE 2 GM/50 ML BAG IV ONE (19:39)
[2024-03-16] MEDS: APIXABAN 5 MG TABLET PO SCH (20:57)
[2024-03-16] MEDS: CARVEDILOL 3.125 MG TABLET PO SCH (20:57)
[2024-03-17] MEDS: ONDANSETRON 4 MG/2 ML VIAL IV PRN (00:03)
[2024-03-17 07:00] LABS: ALT/SGPT 14 U/L (<40); AST/SGOT 31 U/L (<40); Albumin 3.6 gm/dL (3.2-5.2); Albumin/Globulin Ratio 1.2 (1.0-2.3); Alkaline Phosphatase 314 U/L (39-117); Bilirubin,Total 1.6 mg/dL (0.1-1.0); Blood Urea Nitrogen 19 mg/dL (6-20); Calcium 8.7 mg/dL (8.6-10.4); Carbon Dioxide 31 mmol/L (22-30); Chloride 90 mmol/L (96-108); Glomerular Filtration Rate 80; Glucose 63 mg/dL (70-105)
[2024-03-17 07:33] LABS: Basophils # (Auto) 0.01 K/mcL (0.00-0.30); Basophils % (Auto) 0.1 % (0.0-2.0); Eosinophils # (Auto) 0.05 K/mcL (0.00-0.70); Eosinophils % (Auto) 0.6 % (0.0-7.0); Hematocrit 37.1 % (40.1-51.0); Hemoglobin 11.3 g/dL (13.7-17.5); Lymphocytes # (Auto) 0.72 K/mcL (1.50-4.80); Lymphocytes % (Auto) 8.1 % (15.5-49.0); Mean Cell Volume 93.9 fL (80.0-100.0); Mean Corpuscular HGB Conc 30.5 g/dL (31.0-36.0); Mean Platelet Volume 10.3 fL (8.8-12.5); Monocytes # (Auto) 0.66 K/mcL (0.10-0.90); Monocytes % (Auto) 7.4 % (1.0-12.0); Neutrophils % (Auto) 83.5 % (38.0-78.0); Platelet Count 256 K/mcL (140-440); RBC 3.95 M/mcL (4.63-6.08); Red Cell Distribution Width 19.2 % (11.5-14.5); WBC 8.9 K/mcL (4.5-11.0)
[2024-03-17] MEDS: LEVOTHYROXINE 150 MCG TABLET PO SCH (07:35)
[2024-03-17] MEDS: POTASSIUM CHLORIDE 20 MEQ TABLET PO SCH (07:36)
[2024-03-17] MEDS: FUROSEMIDE 40 MG/4 ML VIAL IV SCH (13:00)
[2024-03-17] MEDS: IPRATROPIUM/ALBUTEROL 3 ML AMPUL.NEB NEB PRN (20:15)
[2024-03-17] MEDS: LORazepam 2 MG/ML VIAL IV PRN (21:06)
[2024-03-18 06:24] LABS: ALT/SGPT 13 U/L (<40); AST/SGOT 28 U/L (<40); Albumin 3.6 gm/dL (3.2-5.2); Albumin/Globulin Ratio 1.2 (1.0-2.3); Alkaline Phosphatase 298 U/L (39-117); Bilirubin,Direct 0.7 mg/dL (<0.3); Bilirubin,Total 1.3 mg/dL (0.1-1.0); Blood Urea Nitrogen 23 mg/dL (6-20); Calcium 8.7 mg/dL (8.6-10.4); Carbon Dioxide 30 mmol/L (22-30); Chloride 88 mmol/L (96-108); Globulin 2.9 gm/dL (2.2-3.7); Glomerular Filtration Rate 89; Glucose 60 mg/dL (70-105); Lactate Dehydrogenase 246 U/L (135-225); Phosphorous 2.9 mg/dL (2.5-4.5); Triglycerides 56 mg/dL (<150); Uric Acid 8.5 mg/dL (2.5-8.0)
[2024-03-18] MEDS: METOPROLOL SUCCINATE 25 MG TAB.XL.24H PO SCH (08:52)
[2024-03-19 06:45] LABS: Blood Urea Nitrogen 24 mg/dL (6-20); Calcium 9.1 mg/dL (8.6-10.4); Carbon Dioxide 29 mmol/L (22-30); Chloride 87 mmol/L (96-108); Glomerular Filtration Rate 89; Glucose 64 mg/dL (70-105)
[2024-03-19] MEDS: LEVOTHYROXINE 100 MCG TABLET PO SCH (08:18)
[2024-03-19] MEDS: FUROSEMIDE 40 MG TABLET PO SCH (08:18)
[2024-03-19] MEDS: POTASSIUM CHLORIDE 20 MEQ TABLET PO SCH (08:18)
[2024-03-23 17:07] LABS: Amphetamine Screen Positive
== END 2024-03-19 11:05 | disposition home or self-care (01) | DRG 280 ==
LOC: ICU 09:44 → ED 09:44 → ICU 16:13
PROVIDERS: ADMIT Internal Medicine; ATTEND Internal Medicine